=== PATIENT | male | born 1965 | race Caucasian/White ===

== ENCOUNTER 2016-10-29 17:39 | Emergency (ER) | payer OTHER ==
[~2016-10-29 17:39] MED LIST: DEXAMETHASONE PF 10 MG/1 ML VIAL IV ONE; DEXAMETHASONE PF 10 MG/1 ML VIAL ONE; Famotidine Inj 20 MG in Normal Saline Flush 10 ML IVP ONE
[2016-10-29] MEDS ORDERED: FAMOTIDINE 20 MG/2 ML VIAL IVP ONE (17:43)
--- NOTE | 2016-10-29 17:44 | PDOC ---
Allergy Symptoms HPI - General Chief Complaint: Allergic Reaction/Anaphylaxis Stated Complaint: BEE STING, ALLERGIC REACTION Date Seen by Provider: 10/29/16 Time Seen by Provider: 17:39 Source: POSITIVE: Patient, EMS Exam Limitations: POSITIVE: No limitations Nurse's Notes Reviewed & Considered: Yes EMS Report Reviewed & Considered: Verbal - History of Present Illness Initial Comments: Patient works in one of the [employer] [facility] and was stung by a bee. He was transported here via EMS for further evaluation because of his hypersensitivity to bee stings. In route patient had an IV started, received Solu-Medrol, Benadryl, and epinephrine. This resulted in improvement of the swelling of his tongue and lips. By the time he arrived here in the emergency department his symptoms had significantly abated. He denies any headache, shortness of breath, no chest pain, no nausea vomiting or diarrhea, no fever chills or sweats. He does have a dry mouth. He states that his dry mouth began when he received epinephrine. Body Location Affected: REPORTS: Head, Neck Timing: REPORTS: Abrupt Duration: 1 hour Severity: Severe Quality: REPORTS: Fullness, Itching Associated Symptoms: REPORTS: Itching, Swelling, Mild Shortness of Breath, Troubles Swallowing Identified Causes: REPORTS: Yes (Bee sting) When Exposed: REPORTS: Just Prior to Sx Onset Where Exposed: REPORTS: Work Suspected Etiology: REPORTS: Bee/Wasp Sting Similar Symptoms Previously: Yes Recent Care Received: REPORTS: Denies Treatment Prior To Arrival: REPORTS: Epi Pen, Benadryl - Oral, Other (Solu- Medrol) Any Prior Injuries Related to Current Complaint?: No - Patient Home Medications Home Medications: Home Medications Ibuprofen [Advil] 2 tab PO Q4H PRN PRN 12/05/10 - Patient Allergies Allergies/Adverse Reactions: Allergies Allergy/AdvReac Type Severity Reaction Status Date / Time Penicillins Allergy Severe HIVES Verified 10/29/16 17:54 bee venom protein (honey bee) Allergy Anaphylaxis Verified 10/29/16 17:54 WASP VENOM Allergy Anaphylaxis Uncoded 10/29/16 17:54 Past Medical History - heen HEENT History: Meniere's Disease, Other (please comment) Additional HEENT History: ROSACEA Cardiovascular History: Denies History Respiratory History: Denies History Gastrointestinal History: Diverticulitis Genitourinary History: Denies History Endocrine History: Denies History Musculoskeletal History: Other (please comment) Prosthesis or Implant: No Additional Musculoskeletal History: RT KNEE SURGERY. LT KNEE SCOPE Neurological History: Denies History Blood Disorders: Denies History Psychiatric History: PTSD, Other (please comment) Additional Psychiatric History: INSOMNIA History of Sexually Transmitted Diseases: No Cancer History: Denies History History of MDRO: No History of Other Communicable Diseases: No Alcohol Use: None Substance Use Type: None Previous Surgical History: Yes Type / Date of Surgery: BILATERAL KNEES Anesthesia Reactions: No Malignant Hyperthermia: No Significant Family History: Cancer, Diabetes, Hypertension ROS - Limitations ROS Limitations: No Limitations Constitution: REPORTS: Denies Symptoms Cardiovascular: REPORTS: Denies Cardiac Symptoms Respiratory: REPORTS: Shortness Of Breath Neurological: REPORTS: Denies Neuro Symptoms Gastrointestinal: REPORTS: Denies GI Symptoms Endocrine: REPORTS: Denies Symptoms Musculoskeletal: REPORTS: Denies MS Symptoms Genitourinary: REPORTS: Denies Symptoms Eyes: REPORTS: Denies Symptoms ENT: REPORTS: Trouble Swallowing, Tongue Swelling, Throat Swelling, Lip Swelling Skin: REPORTS: Other (Erythema of the skin of his neck and face) Lympathic: REPORTS: Denies Lympathic Symptoms Immunologic: POSITIVE: Anaphalaxis (Bee stings) Psychiatric: POSITIVE: Denies Psych Symptoms Allergy Symptoms Physical Exam - General Appearance General Appearance: POSITIVE: Alert, Cooperative, No Acute Distress, No Evidence of Trauma - HEENT Head / Face: POSITIVE: Atraumatic, Normal Inspection, No Facial Swelling Eyes: POSITIVE: Inspection Normal, PERRL, EOM's Intact, Sclera Normal Ears: POSITIVE: Ears Normal Inspection, Auricle Normal Nose: POSITIVE: Inspection Normal, No Apparent Trauma, Nares Normal, No CSF Leak Oropharynx: POSITIVE: External Inspection Nml, Pharynx Inspect. Nml, Airway Intact, Voice Normal, No Oral Injury, Lips Normal, Gums Normal, No Drooling, No Thrush, Dry Mucous Membranes Dental: POSITIVE: No Dental Injury - Pupils Pupil Size: 5 mm: Bilateral - Neck Neck: POSITIVE: Normal Inspection, No Apparent Injury - Respiratory Respiratory: POSITIVE: No Respiratory Distress, Breath Sounds Normal - Cardiovascular Cardiovascular: POSITIVE: Regular Rate and Rhythm, Heart Sounds Normal - Abdomen Abdomen: Soft: (All Quadrants), Normal Bowel Sounds: (All Quadrants), Denies Tenderness: (All Quadrants) - Skin Skin: POSITIVE: Intact, Normal For Race, Warm, Dry, No Rash, Erythema (Neck and face) - Extremities Extremity: Non-Tender: (All Extremities), Normal ROM: (All Extremities), Normal Inspection: (All Extremities), Pelvis Stable: (All Extremities) - Neurological / Psychological Neurological: POSITIVE: Affect Apporpriate, Oriented X3, Motor Normal, Sensation Normal Allergy Symptoms Progress - Treatment Nebulizer Treatment Given:: No Treatment: POSITIVE: Diphenhydramine, Epinephrine, Methylprednisolone, Dexamethasone, Famotidine - Patient's Progress Pain Medication Addressed: POSITIVE: Not Applicable Re-examine Time: 18:20 Status: POSITIVE: Improved MDM / ED Course: Patient evaluated, observed, and improved with IV dexamethasone and Pepcid. Assessment: Bee sting with allergic reaction. Plan: Discharge home. - Consult Counseled: POSITIVE: Patient, RE: DX, RE: Need for F/U Patient Care Time - Estimated PCT Patient Care Time (In Minutes): 15 Vital Signs - Recent Vital Signs Vital Signs: Vital Signs (Last 8 hours) Temp Pulse Resp BP Pulse Ox 10/29/16 17:39 98.8 F 90 20 148/93 96 - VS Reviewed Vital Signs Reviewed: Yes Discharge Clinical Impression: Allergic reaction to bee sting Discharge Disposition: Discharged to Home Condition: Stable Patient Instructions Given at Discharge: Anaphylaxis (ED)
[2016-10-29 17:58] VITALS: RESP 20; TEMP 98.8
== END 2016-10-29 18:33 | disposition home or self-care (01) ==
LOC: ER 17:39
DX: T63.441A Toxic effect of venom of bees, accidental (unintentional), initial encounter (principal); R51 Headache; M54.2 Cervicalgia; R06.02 Shortness of breath
CPT/HCPCS: 96374; 96375; 99283; J1100

== ENCOUNTER 2016-11-06 09:28 | Emergency (ER) | payer OTHER ==
[2016-11-06 09:39] VITALS: RESP 16; TEMP 96.5
[2016-11-06] MEDS ORDERED: NORMAL SALINE 10 ML SYRINGE FLUSH IVP PRN (09:43)
[2016-11-06] MEDS ORDERED: Sodium Chloride 0.9% 1,000 ML PRIMARY IV ONE (09:43)
[2016-11-06 09:55] LABS: EOSINOPHILS # (AUTO) 0.23 10*3/UL; EOSINOPHILS % (AUTO) 2.2 % (0-8); HEMATOCRIT 49.5 % (42.0-52.0); HEMOGLOBIN 17.5 g/dL (14.0-18.0); LYMPHOCYTES # (AUTO) 2.52 10*3/uL; MEAN CORPUSCULAR HEMOGLOBIN 30.9 PG (27-31); MEAN CORPUSCULAR HGB CONC 35.4 g/dL (33-37); MEAN CORPUSCULAR VOLUME 87.3 FL (80-90); MONOCYTES # (AUTO) 1.06 10*3/UL (0.3-0.8); MONOCYTES % (AUTO) 10.3 % (5-15); NEUTROPHILS # (AUTO) 6.39 10*3/UL; NEUTROPHILS % (AUTO) 61.7 % (50-80); RED BLOOD COUNT 5.67 10^6/uL (4.70-6.10)
[2016-11-06 09:56] LABS: BILIRUBIN,URINE MODERATE (NEG); COLOR,URINE YELLOW; GLUCOSE, URINE (UA) NEGATIVE (NEG); NITRATE,URINE POSITIVE (NEG); OCCULT BLOOD,URINE NEGATIVE (NEG); PH,URINE 5.5 (5.0-8.5); PROTEIN,URINE >300 mg/dl (NEG)
[2016-11-06 10:01] LABS: PLATELET MORPHOLOGY COMMENT NORMAL MORPHOLOGY (NORM); RBC MORPHOLOGY COMMENT NORMAL MORPHOLOGY (NORM); WBC MORPHOLOGY COMMENT NORMAL MORPHOLOGY (NORM)
[2016-11-06 10:02] LABS: CLARITY,URINE SLIGHTLY CLOUDY (CLEAR)
[2016-11-06 10:03] LABS: URINE SAMPLE TYPE VOIDED SPECIMEN; URINE SPECIFIC GRAVITY - MAN 1.024
[2016-11-06 10:06] LABS: BACTERIA,URINE MODERATE; RBC,URINE 0-2 /hpf; URINE CASTS MODERATE; WBC,URINE 0-2
[2016-11-06 10:07] LABS: BLOOD UREA NITROGEN 10 mg/dL (7-22); CALCIUM 10.2 mg/dL (8.7-10.7); EST GLOMERULAR FILTRATION > 60 (>60 ml/min/1.73m(2)); LIPASE 69 IU/L (23-300); SERUM ALBUMIN 4.7 g/dL (3.5-4.8)
--- NOTE | 2016-11-06 11:23 | DI ---
CT ABD W/CN AND PELVIS W/CN,11/06/2016 9:43 AM: Clinical History: Abdominal pain Previous Exam: May 19, 2015 Findings: Multiple helically acquired CT images are obtained through the abdomen and pelvis following the intra venous administration of 85 mL of Isovue 300. The lung bases are clear. The heart, liver, gallbladder, spleen, adrenals, kidneys and spleen are unr emarkable. There is no mesenteric or retroperitoneal lymphadenopathy. There has been interval resolution of the acute diverticulitis seen on the prior exam. There is a tra ce amount free fluid within the deep pelvis. There are multiple colonic diverticula. There is thickening of loops of small bowel within the right lower quadrant involving a large segment of the distal ileum. There is some. Cardiac fat stranding. Mild diffuse degenerative changes of the spine are noted. Impression: 1. Thickening of the small bowel involving the majority of the distal ileum. This is most consistent with inflammatory bowel disease. This could also be an infectious process. There is a trace amount of free fluid within the deep pelvis likely related to the inflammatory dumont es of the small bowel.
[2016-11-06] MEDS ORDERED: Sodium Chloride 0.9% 1,000 ML ONE (18:11)
--- NOTE | 2016-11-07 06:04 | PDOC ---
Abdomen/Flank HPI - General Chief Complaint: Abdomen Pain Stated Complaint: abdominal pain Date Seen by Provider: 11/06/16 Time Seen by Provider: 09:30 Source: POSITIVE: Patient Exam Limitations: POSITIVE: No limitations Nurse's Notes Reviewed & Considered: Yes - History of Present Illness Initial Comments: The patient is a 51-year-old male. He states that for the past 3 days, approximately, he has had discomfort and pain in the lower abdomen, right greater than left. He states his pain waxes and wanes and is somewhat crampy in character. Subjectively, he thinks he may have been running a fever last night, but he did not take his temperature. Present temperature is 96.1F. He' s had nausea but no vomiting. He also states he's had some diarrhea which is yellow in consistency. No melena or hematochezia. No dysuria or hematuria. Patient states that he characteristically has primarily loose bowel movements, around 5 bowel movements daily. Patient has not been on any recent antibiotics. He takes Aleve and Benicar. Patient states he's had 2 episodes of diverticulitis in the past. No history of abdominal surgery. History of hypertension. He states he is allergic to penicillin. Body Location Affected: REPORTS: Abdomen Timing: REPORTS: Constant Duration: <1 week (Approximately 3 days) Severity: Moderate Quality: REPORTS: Cramping, "Pain", Tenderness Abdominal Pain Onset Location: REPORTS: RLQ, LLQ Abdominal Pain Radiation: REPORTS: No radiation Context: REPORTS: None Modifying Factors: worse with: Nothing, Analgesics, Antacids, Breathing, Coughing, Defecating, Vomiting, Eating, Exercise, Lying down, Urinating, Palpation, Movement, Rest, Upright Position, Walking, Remaining Still, Other Associated Symptoms: REPORTS: Fever (Subjectively), Nausea, Diarrhea (Around 5 loose bowel movements daily) Similar Symptoms Previously: Yes (as above; history of predominantly loose bowel movements) Recent Care Received: REPORTS: Denies Any Prior Injuries Related to Current Complaint?: No - Patient Home Medications Home Medications: Home Medications Ibuprofen [Advil] 2 tab PO Q4H PRN PRN 12/05/10 Epinephrine [Epipen 2-Andrew] 0.3 ml IM ONCE #2 unit 11/02/16 Olmesartan Medoxomil 1 tab PO QD #30 tab 11/02/16 metroNIDAZOLE Tab [Flagyl Tab] 500 mg PO Q8H #60 tab 11/06/16 predniSONE Tab [Deltasone Tab] 10 mg PO DAILY #40 tab 11/06/16 - Patient Allergies Allergies/Adverse Reactions: Allergies Allergy/AdvReac Type Severity Reaction Status Date / Time Penicillins Allergy Severe HIVES Verified 11/06/16 09:30 bee venom protein (honey bee) Allergy Anaphylaxis Verified 11/06/16 09:30 WASP VENOM Allergy Anaphylaxis Uncoded 11/06/16 09:30 Past Medical History - heen HEENT History: Meniere's Disease, Other (please comment) Additional HEENT History: ROSACEA Cardiovascular History: Hypertension Respiratory History: Denies History Gastrointestinal History: Diverticulitis Genitourinary History: Denies History Endocrine History: Denies History Musculoskeletal History: Other (please comment) Prosthesis or Implant: No Additional Musculoskeletal History: RT KNEE SURGERY. LT KNEE SCOPE Neurological History: Denies History Blood Disorders: Denies History Psychiatric History: PTSD, Other (please comment) Additional Psychiatric History: INSOMNIA History of Sexually Transmitted Diseases: No Cancer History: Denies History In Past Year Been Physically Harmed or Verbally Threatened: No History of MDRO: No History of Other Communicable Diseases: No Tobacco Use: Current Every Day Smoker Alcohol Use: Heavy Type of alcohol normally used: Beer, Hard Liquor How much alcohol do you normally drink a day?: ON HIS DAYS OFF Substance Use Type: None Previous Surgical History: Yes Type / Date of Surgery: BILATERAL KNEES. LEFT SHOULDER SCOPE Anesthesia Reactions: No Malignant Hyperthermia: No Significant Family History: Cancer, Diabetes, Hypertension Past Medical History Reviewed: Reviewed - No Changes ROS - Limitations ROS Limitations: No Limitations Constitution: REPORTS: Fever (Subjectively last night) Cardiovascular: REPORTS: Denies Cardiac Symptoms Respiratory: REPORTS: Denies Resp Symptoms Neurological: REPORTS: Denies Neuro Symptoms Gastrointestinal: REPORTS: Abdominal Pain, Nausea, Diarrhea Endocrine: REPORTS: Denies Symptoms Musculoskeletal: REPORTS: Denies MS Symptoms Genitourinary: REPORTS: Denies Symptoms Eyes: REPORTS: Denies Symptoms ENT: REPORTS: Denies Symptoms Skin: REPORTS: Denies Skin Symptoms Lympathic: REPORTS: Denies Lympathic Symptoms Immunologic: POSITIVE: Denies Symptoms Psychiatric: POSITIVE: Denies Psych Symptoms Abdominal/Flank Pain PE - General Appearance General Appearance: POSITIVE: Alert, Cooperative, No Acute Distress, No Evidence of Trauma - HEENT HEENT: POSITIVE: Head Inspection Nml, Eyes Inspection Nml, Ears Inspection Nml, Nose Inspection Nml, Oral/Dental Inspect. Nml, Pharynx Inspect. Nml, PERRL, EOMI - Neck Neck: POSITIVE: Normal Inspection, No Apparent Injury - Respiratory Respiratory: POSITIVE: No Respiratory Distress, Breath Sounds Normal, Chest Non- Tender - Cardiovascular Cardiovascular: POSITIVE: Regular Rate and Rhythm, Heart Sounds Normal, Equal Pulses, Strong Pulses Peripheral Pulses: Radial (R): 2+, Radial (L): 2+ - Chest Chest: POSITIVE: Non Tender - Abdomen Abdomen: Soft: (All Quadrants), Normal Bowel Sounds: (All Quadrants), Denies Tenderness: (RUQ), (LUQ), No Splenomegaly: (All Quadrants), No Hepatomegaly: ( All Quadrants), No Guarding: (All Quadrants), No Rebound: (All Quadrants), No Palpable Pulse: (All Quadrants), No Palpabale Mass: (All Quadrants), No Distention: (All Quadrants), No Rigidity: (All Quadrants), Tenderness Noted: ( RLQ), (LLQ) Additional Abdominal Details: Abdominal examination shows bowel sounds to be active. Patient does express some tenderness on direct palpation over both lower abdominal quadrants, right greater than left. No masses, organomegaly or rebound. - Back Back: POSITIVE: Normal Inspection - Skin Skin: POSITIVE: Intact, Normal For Race, Warm, Dry, No Rash - Extremities Extremity: Non-Tender: (All Extremities), Normal ROM: (All Extremities), Normal Inspection: (All Extremities) - Neurological Neurological: POSITIVE: Oriented X3, patient care representative Normal As Tested, Motor Normal, Sensation Normal, 5, 6 - Psychological Psychiatric: POSITIVE: Affect Appropriate, Mood Appropriate Images - Complete Complete: 1 - Area of described abdominal pain/discomfort Abdomen Progress - Results Reviewed by me Xrays/CTs/US Reviewed by me: Yes Discussed with Radiologist: Yes Radiology Findings: CT scan abdomen and pelvis with IV contrast is read by radiologist as showing thickening of the small bowel involving the majority of the distal ileum. According to radiologist this is most consistent with inflammatory bowel disease, but could also be an infectious process. Appendix is normal radiographically. Lab Results Reviewed: Yes Lab Results:: Laboratory Results 11/06/16 Range/Units 09:46 WBC 10.34 (4.8-10.8) 10^3/uL RBC 5.67 (4.70-6.10) 10^6/uL Hgb 17.5 (14.0-18.0) g/dL Hct 49.5 (42.0-52.0) % MCV 87.3 (80-90) FL MCH 30.9 (27-31) PG MCHC 35.4 (33-37) g/dL RDW Std Deviation 41.6 (39-50) fL RDW Coeff of Shiva 13.0 (11.5-14.5) % Plt Count 266 (140-350) 10*3/uL MPV 9.0 (7.4-12.2) FL Immature Gran % (Auto) 0.4 (0-5) % Neut % (Auto) 61.7 (50-80) % Lymph % (Auto) 24.4 (10-50) % [place] % (Auto) 10.3 (5-15) % Eos % (Auto) 2.2 (0-8) % Baso % (Auto) 1.0 (0-1) % Immature Gran # (Auto) 0.04 10*3/UL Neut # (Auto) 6.39 10*3/UL Lymph # (Auto) 2.52 10*3/uL [place] # (Auto) 1.06 H (0.3-0.8) 10*3/UL Eos # (Auto) 0.23 10*3/UL Baso # (Auto) 0.10 10*3/UL WBC Morphology Comment Normal morphology (NORM) Plt Morphology Comment Normal morphology (NORM) RBC Morph Comment Normal morphology (NORM) Sodium 138 (135-145) meq/L Potassium 4.2 (3.8-5.2) meq/L Chloride 103 (98-112) meq/L Carbon Dioxide 22 L (23-33) meq/L Anion Gap 13 (5-20) BUN 10 (7-22) mg/dL Creatinine 1.0 (0.70-1.50) mg/dL Estimated GFR > 60 (>60 ml/min/1.73m(2)) BUN/Creatinine Ratio 10.00 (6-20) Glucose 125 H (78-110) mg/dL Calculated Osmolality 285.0 (267-292) mOsm/kg Calcium 10.2 (8.7-10.7) mg/dL Total Bilirubin 1.4 H (0.3-1.2) mg/dL AST 26 (21-57) IU/L ALT 41 (21-72) IU/L Alkaline Phosphatase 88 (38-126) IU/L Total Protein 8.4 H (6.1-8.0) g/dL Albumin 4.7 (3.5-4.8) g/dL Globulin 3.7 (2.50-4.10) g/dL Albumin/Globulin Ratio 1.20 L (1.3-2.0) mg/g Amylase 59 (30-110) U/L Lipase 69 (23-300) IU/L Ur Collection Type Voided specimen Urine Color Yellow Urine Clarity Slightly cloudy (CLEAR) Urine pH 5.5 (5.0-8.5) Ur Specific [place] >=1.030 (1.005-1.030) U Specif Grav (Refrac) 1.024 Urine Protein >300 (NEG) mg/dl Urine Glucose (UA) Negative (NEG) mg/dL Urine Ketones Trace (NEG) Urine Occult Blood Negative (NEG) Urine Nitrate Positive H (NEG) Urine Bilirubin Moderate (NEG) Urine Urobilinogen 1.0 (0.2) EU/dL Ur Leukocyte Esterase Negative (NEG) Urine RBC 0-2 (NONE) /hpf Urine WBC 0-2 (NONE) Ur Squamous Epith Cells None (NONE) Ur Renal Epithelial Cell None (NONE) Urine Crystals None Urine Bacteria Moderate (NONE) Urine Casts Moderate (NONE) Urine Mucus Few (NONE) Urine Trichomonas None (NONE) Urine Yeast None (NONE) Ur Culture Indicated? Culture set - Patient's Progress Pain Medication Addressed: POSITIVE: Yes (Recommended Tylenol) School/Work Release Addressed: POSITIVE: Yes Re-examine Time: 12:30 Re-Examine Comment: Patient feeling some better on discharge. Stool specimens for C. difficile, leukocytes, culture, and Giardia/cryptosporidium ordered, but patient did not have any bowel movements while in the emergency room. Specimen containers given to patient and patient is to return stool specimens to the laboratory when available. Status: POSITIVE: Unchanged, Re-Examined - Consult Consult (If Yes, Name of Consulting MD & Time Called): Yes (Dr. Herbert, gastroenterology,[facility],1200 ) Consulting MD will see pt:: POSITIVE: In Office Counseled: POSITIVE: Patient, RE: Lab Results, RE: Radiology Results, RE: DX, RE : Need for F/U Patient Care Time - Estimated PCT Patient Care Time (In Minutes): 50 Vital Signs - VS Reviewed Vital Signs Reviewed: Yes Discharge Clinical Impression: Inflammatory bowel disease Discharge Disposition: Discharged to Home Condition: Stable Prescriptions / Orders: predniSONE Tab [Deltasone Tab] 10 mg PO DAILY #40 tab metroNIDAZOLE Tab [Flagyl Tab] 500 mg PO Q8H #60 tab Patient Instructions Given at Discharge: Abdominal Pain (ED) Additional Instructions: The CT scan of your abdomen is highly suggestive of inflammatory bowel disease, probably Crohn's disease. This condition is chronic and might be responsible for your chronic diarrhea and recurring abdominal discomfort. I spoke with Dr. Herbert, electric brain wave equipment mechanic in [place]. He is advised was to start her on Flagyl , 500 mg 3 times daily. He also advised prednisone, 40 mg daily for 4 days, and then decrease by 10 mg every fourth day. Follow-up with in his office in about 10 days. His office number is [phone]. Please return here anytime if you develop fevers, increased abdominal pain, or if your condition worsens in any way. Clear liquid diet for 24 hours. I will send a copy of your CT scan to [facility] electronically so that she'll electric brain wave equipment mechanic will have this available for his review. I have also asked that you return some stool specimens to our laboratory for some additional studies, to make sure you do not have an infectious process going on. Follow Up With: JAYE LOZANO [Primary Care Provider] - (Instructions as above. Follow-up with gastroenterology in about 10 days. Return here anytime if condition worsens in any way.)
== END 2016-11-06 12:55 | disposition home or self-care (01) ==
LOC: ER 09:28
DX: A04.7 Enterocolitis due to Clostridium difficile (principal); K52.89 Other specified noninfective gastroenteritis and colitis; R10.32 Left lower quadrant pain; R10.31 Right lower quadrant pain; I10 Essential (primary) hypertension; R11.0 Nausea
CPT/HCPCS: 74177; 80053; 81001; 81003; 82150; 83690; 85025; 87046; 87077; 87088; 87186; 87205; 87328; 87329; 87493; 96360; 96361; 99283; J7030

== ENCOUNTER 2016-12-28 07:56 | Day surgery (SDC) | payer OTHER ==
[~2016-12-28 07:56] MED LIST changes: -DEXAMETHASONE PF 10 MG/1 ML VIAL IV ONE; -DEXAMETHASONE PF 10 MG/1 ML VIAL ONE; -Famotidine Inj 20 MG in Normal Saline Flush 10 ML IVP ONE; +LIDOCAINE W/ SODIUM BICARB 0.5 ML SYR ONE; +Lactated Ringers 1,000 ML PRIMARY IV ONE; +MIDAZOLAM 5 MG/1 ML ONE; +REMIFENTANIL 1 MG/1 ML IV ONE; +Sodium Chloride 0.9% vial 20 ML ONE
--- NOTE | 2016-12-28 08:55 | GEN.OPNOTE ---
Colonoscopy Procedure Note Surgery Date: 12/28/16 Preoperative Diagnosis: History of diverticulitis. History C. difficile infection. Colon cancer screening Postoperative Diagnosis: Sigmoid diverticulosis. Acute inflammatory process at 35 cm. Small sessile polyp at 35 cm Procedure: Colonoscopy with biopsy Surgeon: Dallin Gomez MD Anesthesia Provider: Cherry Milton CRNA Anesthesia Type: MAC Indications: 51-year-old gentleman who has had diverticulitis and then subsequently developed C. difficile infection. He's never had a colonoscopy. Need to do endoscopy to confirm the diagnosis and rule out inflammatory bowel disease. Also, patient needs have colon cancer screening Findings: Prep : Excellent Cecum : Olympus video colonoscopy scope inserted got elevated cecum. Ileocecal valve clearly identified. Patient had normal-appearing cecum Ascending : Ascending colons within normal limits no polyps tumors or cancers Transverse : Transverse colon was within normal limits no polyps tumors or cancers Sigmoid : In the descending colon which measures 75 cm there is a small sessile polyp easily removed with cold biopsy forceps there is adequate hemostasis. Patient is sigmoid diverticulosis. And at 35 cm there was a red inflamed mucosa that was biopsied Rectum : Rectum free from disease Digital Rectal Exam : Prostate smooth no rectal masses A lubricated flexible colonoscope was inserted and passed to the blind end of the cecum.
[2016-12-28] MEDS ORDERED: DEXAMETHASONE SOD PHOSPHATE 4 MG/1 ML VIAL ONE (09:11)
[2016-12-28 09:48] VITALS: TEMP 97.1
[2016-12-28 09:50] VITALS: RESP 18
== END 2016-12-28 09:45 | disposition home or self-care (01) ==
LOC: SDSC 07:56
PROVIDERS: ATTEND Surgery
DX: Z12.11 Encounter for screening for malignant neoplasm of colon (principal); Z87.19 Personal history of other diseases of the digestive system; K57.30 Diverticulosis of large intestine without perforation or abscess without bleeding; K52.9 Noninfective gastroenteritis and colitis, unspecified; K63.5 Polyp of colon
CPT/HCPCS: 45380; A4216; J1100; J2250; J2704; J7120